=== PATIENT | female | born 2005 | race Caucasian/White ===

== ENCOUNTER 2023-04-18 23:08 | Emergency (ER) | payer SELFPAY ==
[~2023-04-18] VITALS: Ht 149.8 cm; Wt 64.6 kg
[2023-04-18 23:18] VITALS: BP 138/88
--- NOTE | 2023-04-19 01:11 | ED GI ---
General Chief Complaint: Rect Problems Stated Complaint: BLOODY STOOL Nursing Triage Note: Patient arrival to ED after calling first to ask medical advice for seeing blood after having a bowel movement [employer]. Pt saw the [facility] yesterday for the same thing and told probable hemorrhoid. Pt reports being constipated and just restarting Miralax. Pt is very apprehensive and near hyperventilating. Now c/o lightheaded with mild nausea. Source of Information: Patient History of Present Illness Date Seen by Provider: Apr 19, 2023 Time Seen by Provider: 00:44 Initial Comments 17-year-old female presenting with complaints of seeing blood in the toilet after a bowel movement. She states that she has been constipated and has only taken 2 doses of MiraLAX this week. She had gone to the walk-in care clinic and they had done a rectal exam and told her that she might have a hemorrhoid. She denies having any nausea or vomiting. She was very anxious and hyperventilating after the episode tonight of blood in the toilet. She denies having any fever or chills. She reported having some left lower abdominal pain after the bowel movement but it has resolved since then. Timing/Duration: 1-3 Hours Severity/Quality: Moderate, Full Location: LLQ Radiation: No Radiation Activities at Onset: Other (Defecation) Modifying Factors: Worsens With Defecating Associated Symptoms: No Back Pain, No Chest Pain, No Diaphoresis, No Fever/Chills, No Fatigue, No Headache, No Heartburn, No Nausea/Vomiting, No Rash, No Shortness of Air, No Swelling/Mass in Abdomen, No Syncope, No Weakness Allergies and Home Medications Allergies Coded Allergies: No Known Drug Allergies (Unverified , 04/19/23) Patient Home Medication List Home Medication List Reviewed: Yes No Active Prescriptions or Reported Meds Review of Systems Review of Systems Constitutional: No chills, No fever EENTM: No Symptoms Reported Respiratory: No Symptoms Reported Cardiovascular: No Symptoms Reported Gastrointestinal: See HPI Genitourinary: No Symptoms Reported Musculoskeletal: no symptoms reported Skin: no symptoms reported Psychiatric/Neurological: No Symptoms Reported Endocrine: No Symptoms Reported Hematologic/Lymphatic: Denies Easy Bleeding, Denies Easy Bruising Past Anscjoo-Hwqitl-Gvmgan Hx Patient Social History Tobacco Use?: No Use of E-Cig and/or Vaping dev: Yes E-Cig or Vaping type used: Nicotine Use of E-Cig and/or Vaping [place]: Current Everyday User Substance use?: No Alcohol Use?: Yes Alcohol Frequency: Rarely Pt feels they are or have been: No Immunizations Up To Date Influenza Vaccine Up-to-Date: No; Not Current First/Initial COVID19 Vaccinat: Unknown date Second COVID19 Vaccination Loyd: Unknown date 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 oz. kg; 28.00 BMI Method: General Appearance: WD/WN, no apparent distress (Patient was initially sleeping when entering the room but easily woke up. She denied having any pain or discomfort currently.) HEENT: PERRL/EOMI, normal ENT inspection, pharynx normal Neck: non-tender, full range of motion, supple, normal inspection Respiratory: chest non-tender, lungs clear, normal breath sounds, no respiratory distress, no accessory muscle use Cardiovascular: normal peripheral pulses, regular rate, rhythm Gastrointestinal: normal bowel sounds, non tender, soft, no pulsatile mass Rectal: deferred (Patient arrived used as she stated that she just had labs done through walk-in care) Extremities: normal range of motion, non-tender, normal capillary refill Back: no CVA tenderness Neurologic/Psychiatric: no motor/sensory deficits, alert, oriented x 3 Skin: normal color, warm/dry; No ecchymosis Progress/Results/Core Measures Results/Orders Vital Signs/I&O 04/18/23 23:18 Temp 36.9 Pulse 85 Resp 20 B/P (MAP) 138/88 (105) Pulse Ox 100 O2 Delivery Room Air Blood Pressure Mean: 105 Progress Progress Note : Progress Note Due to multiple critical patients presenting to the emergency department and required my attention patient did have an extended wait time to be evaluated and seen in the emergency department. She was hemodynamically stable and was resting in the room comfortably without any distress. When examining her and discussing option of digital rectal exam and looking for signs of hemorrhoids or bleeding she refused as she just had that done with the walk-in care clinic. Counseled that I could do a CT scan and draw blood to check her blood count. The CT scan will look for signs of infection under inflammation as well as mass and see if there was another reason for her to have blood in her stools. I did advise her that it can take at least 1 to 2 hours to get the results back and patient did not want to wait that long. She felt like things were improved and she was less anxious now. She wanted to try going home and to follow-up with the [facility] and have additional testing done if needed. Since her vital signs and exam otherwise were benign it was felt that it was safe for her to be discharged home with return precautions. Advised that if the pain came back especially if it was associated with out having a bowel movement or if she was having bleeding without a bowel movement. She could always return or be evaluated in the clinic or back here in the emergency department at that point she would need to have blood work and imaging done. She may still need to have endoscopy done to look for other potential sources of bleeding especially if the symptoms persist and did not resolve when she has improved control of her chronic constipation. Departure Impression Primary Impression: Bright red blood per rectum Additional Impression: Constipation Qualified Codes: K59.00 - Constipation, unspecified Disposition: HOME, SELF-CARE Condition: Stable Departure-Patient Inst. Decision time for Depature: 01:10 Referrals: NO,LOCAL PHYSICIAN (PCP) Primary Care Physician [facility] Patient Instructions: Constipation, Adult ED, Bloody Stools, Adult ED Add. Discharge Instructions: Make sure that you are taking MiraLAX at least daily to help get your stools soft and regular. If you are continuing to have blood with bowel movements or you are having increasing abdominal pain or passing blood without a bowel movement then you should be reevaluated. You could return to the emergency department and have labs and imaging performed or you could check with the clinic about having testing done. If you are developing fever over 101 Fahrenheit, uncontrolled nausea vomiting, uncontrolled pain then those would all be reasons to be seen more emergently. All discharge instructions reviewed with patient and/or family. Voiced un derstanding. Scripts No Active Prescriptions or Reported Meds HENRIK ONEILL MD Apr 19, 2023 01:11
== END 2023-04-19 01:17 | disposition home or self-care (01) ==
LOC: ER FS 23:11
DX: K92.1 Melena (principal); K59.00 Constipation, unspecified; F17.290 Nicotine dependence, other tobacco product, uncomplicated
CPT/HCPCS: 99281